=== PATIENT | female | born 1965 | race Caucasian/White ===

== ENCOUNTER → 2016-09-17 | Outpatient (CLI) | payer OTHER ==
--- NOTE | 2016-09-17 17:54 | DX ---
Bilateral Hips, 3 views HISTORY: Bilateral pain, right greater than left; history of injury to the left hip several years ago , M25.551 Comparison: None Findings: The femoral heads are well rounded and normally located. The hip joint cartilage spaces ar e symmetric and normal. There is no subcortical cyst formation, spurring or erosive change. The SI kylee ints and pubic symphysis look normal. There is no evidence of a healed fracture deformity. There is n o chondrocalcinosis of the acetabular labral cartilage. Impression: No source for hip pain identified.
== END ==
LOC: BMCIMAGING 16:26
PROVIDERS: ATTEND Family Medicine
DX: M25.551 Pain in right hip (principal); M25.552 Pain in left hip

== ENCOUNTER → 2016-12-25 | Outpatient (CLI) | payer OTHER | LOC: FIMAGING 16:04 | DX: Z12.31 Encounter for screening mammogram for malignant neoplasm of breast (principal) | CPT/HCPCS: G0202 ==

== ENCOUNTER → 2017-12-26 | Outpatient (CLI) | payer OTHER | LOC: FIMAGING 15:41 | PROVIDERS: ATTEND Obstetrics & Gynecology | DX: Z12.31 Encounter for screening mammogram for malignant neoplasm of breast (principal) ==

== ENCOUNTER 2018-11-24 12:05 | Emergency (ER) | payer OTHER ==
--- NOTE | 2018-11-24 12:49 | CPEKG ---
Test Reason : OPEN Blood Pressure : / mmHG Vent. Rate : 050 BPM Atrial Rate : 050 BPM P-R Int : 174 ms QRS Dur : 090 ms QT Int : 481 ms P-R-T Axes : -50 071 091 degrees QTc Int : 439 ms Sinus or ectopic atrial rhythm Abnormal T, consider ischemia, lateral leads Confirmed by Cory Carrizales ([id number]) on 11/24/2018 12:49:28 PM Referred By: PHYSICIAN ED Confirmed By:Cory Carrizales
[2018-11-24] MEDS ORDERED: NS 1,000 ML IV ONE (12:50)
--- NOTE | 2018-11-24 12:53 | EDPHY ---
H & P Stated Complaint: Syncopal episode at movie theatre-no trauma Time Seen by Provider: 11/24/18 12:45 HPI/ROS: CHIEF COMPLAINT: Syncope HISTORY OF PRESENT ILLNESS: Patient is a 53-year-old female who reports multiple previous episodes of syncope with blood draws or descriptions of medical procedures. She states that she was at the theater with her a kids watching a movie that takes place in a hospital when she began to feel lightheaded and have palpitations. She leaned over into the seat next to her and after a few moments felt that she had been unconscious for a few seconds. She then stood up and walked out to the lobby and put her head down on the table. She continued to feel lightheaded and have palpitations. And eventually asked 1 of her kids to call a EMS. She is also diaphoretic and nauseous. She received Zofran by EMS. Her vital signs are stable although bradycardic. She reports that she 50-60 is her baseline heart rate. She denies chest pain or shortness of breath. Severity: Moderate Modifying factors: Improving REVIEW OF SYSTEMS: Constitutional: denies: chills, fever, recent illness, recent injury EENTM: denies: blurred vision, double vision, nose congestion Respiratory: denies: cough, shortness of breath Cardiac: See HPI Gastrointestinal/Abdominal: denies: abdominal pain, diarrhea, nausea, vomiting, blood streaked stools Genitourinary: denies: dysuria, frequency, hematuria, pain Musculoskeletal: denies: joint pain, muscle pain Skin: denies: lesions, rash, jaundice, bruising Neurological: denies: headache, numbness, paresthesia, tingling, dizziness, weakness Hematologic/Lymphatic: denies: blood clots, easy bleeding, easy bruising Immunologic/allergic: denies: HIV/AIDS, transplant 10 systems reviewed and negative except as noted EXAM: GENERAL: Well-appearing, well-nourished and in no acute distress. HEAD: Atraumatic, normocephalic. EYES: Pupils equal round and reactive to light, extraocular movements intact, sclera anicteric, conjunctiva are normal. ENT: TMs normal, nares patent, oropharynx clear without exudates. Moist mucous membranes. NECK: Normal range of motion, supple without lymphadenopathy or JVD. LUNGS: Breath sounds clear to auscultation bilaterally and equal. No wheezes rales or rhonchi. HEART: Bradycardic, Regular rate and rhythm without murmurs, rubs or gallops. ABDOMEN: Soft, nontender, normoactive bowel sounds. No guarding, no rebound. No masses appreciated. BACK: No CVA tenderness, no spinal tenderness, step-offs or deformities EXTREMITIES: Normal range of motion, no pitting or edema. No clubbing or cyanosis. NEUROLOGICAL: Cranial nerves II through XII grossly intact. Normal speech, normal gait. 5/5 strength, normal movement in all extremities, normal sensation , normal reflexes PSYCH: Normal mood, normal affect. SKIN: Warm, dry, normal turgor, no visible rashes or lesions. Source: Patient Exam Limitations: No limitations - Personal History LMP (Females 10-55): Unknown - Medical/Surgical History Hx Asthma: No Hx Chronic Respiratory Disease: No Hx Diabetes: No Hx Cardiac Disease: No Hx Renal Disease: No Hx Cirrhosis: No Hx Alcoholism: No Hx HIV/AIDS: No Hx Splenectomy or Spleen Trauma: No Other PMH: denies - Family History Significant Family History: No pertinent family hx - Social History Smoking Status: Never smoked Alcohol Use: None Constitutional: Initial Vital Signs Temperature (C) 36.4 C 11/24/18 12:15 Heart Rate 51 L 11/24/18 12:15 Respiratory Rate 16 11/24/18 12:15 Blood Pressure 116/68 11/24/18 12:15 O2 Sat (%) 98 11/24/18 12:15 O2 Delivery Mode Room Air Allergies/Adverse Reactions: No Known Allergies Allergy (Verified 11/24/18 14:52) Home Medications: Medication Instructions Recorded Cholecalciferol Vit D3 [Vitamin D3 1,000 units PO DAILY 11/24/18 (*)] Herbals/Supplements -Info Only 1 ea PO DAILY 11/24/18 Medical Decision Making - Diagnostics EKG Interpretation: An EKG obtained and was read and documented in trace view. Please see trace view for full reading and report. Sinus bradycardia, nonspecific T-wave abnormalities ED Course/Re-evaluation: 2:00 p.m. the patient is feeling slightly better after IV fluids. Will continue to hydrate with a 2nd L. Heart rate is now in the mid 60s sinus rhythm. More obvious T-wave than on previous monitoring an EKG. I offered admission the hospital for symptomatic bradycardia and possible atrial arrhythmia. She is declining wishes to go home. We agreed to observe her for another hour and re-evaluate. 2:30 p.m. I spoke with Dr. Ramirez about likely admission for symptomatic bradycardia 2:45 p.m. the patient states that she feels much better. She has been ambulating without difficulty. No lightheadedness. She continues to refuse admission. Will discharge at this time with strict return precautions. Will have cardiology office follow-up with her. Hospitalist rhea spring suggest that this could be a prolonged vaso vagal response. Differential Diagnosis: Partial list of the Differential diagnosis considered include but were not limited to; syncope, vasovagal, arrhythmia, bradycardia, block, medication reaction and although unlikely based on the history and physical exam, I also considered acute coronary disease, infection. I discussed these differential diagnoses and the plan with the patient as well as the usual and expected course. The patient understands that the diagnosis is provisional and that in medicine we are not always correct and that further workup is often warranted. Usual and customary warnings were given. All of the patient's questions were answered. The patient was instructed to return to the emergency department should the symptoms at all worsen or return, otherwise to followup with the physician as we discussed. - Data Points Laboratory Results: Laboratory Results 11/24/18 11:50 11/24/18 11:50 Medications Given: Discontinued Medications Sodium Chloride (Ns) 1,000 mls @ 0 mls/hr IV EDNOW ONE; Wide Open PRN Reason: Protocol Stop: 11/24/18 12:51 Last Admin: 11/24/18 13:03 Dose: 1,000 mls Point of Care Test Results: Chemistry 11/24/18 13:00 POC Troponin I 0.00 ng/mL ng/mL (0.00-0.08) Departure - Departure Disposition: Home, Routine, Self-Care Clinical Impression: Syncope Qualifiers: Syncope type: vasovagal syncope Qualified Code(s): R55 - Syncope and collapse Condition: Fair Instructions: Syncope (DC) Referrals: Patient,NotPresent [Unknown] - As per Instructions Aurelia Jones MD [Primary Care Provider] - 2-3 days without fail
[2018-11-24 15:20] VITALS: BP 116/75
== END 2018-11-24 15:19 | disposition home or self-care (01) ==
LOC: EDUNIT# → UNDOADMOB 14:31
DX: R55 Syncope and collapse (principal); E86.9 Volume depletion, unspecified
CPT/HCPCS: 84484-ER

== ENCOUNTER → 2018-12-21 | Outpatient (CLI) | payer OTHER | LOC: FIMAGING 15:56 | PROVIDERS: ATTEND Obstetrics & Gynecology | DX: Z12.31 Encounter for screening mammogram for malignant neoplasm of breast (principal) ==